=== PATIENT | male | born 1970 | race Two or more races ===

== ENCOUNTER 2023-05-27 16:51 | Inpatient (IN) | payer MEDICAID, OTHER ==
[~2023-05-27] VITALS: Ht 172.7 cm; Wt 83.5 kg
[2023-05-27] MEDS ORDERED: VANCOMYCIN PER PHARMACY 0 MG IV SCH (18:30)
[2023-05-27] MEDS ORDERED: PIPERACILLIN-TAZOB 3.375GM 100 ML IV ONE (18:30)
[2023-05-27 18:31] LABS: Basophils # (auto) 0 10 ^3/uL (0-0.2); Eosinophils # (auto) 0 10 ^3/uL (0-0.8); Hematocrit 45.7 % (41.0-53.0); Hemoglobin 14.5 g/dL (13.5-17.5); Lymphocytes # (auto) 0.4 10 ^3/uL (0.4-5.4); Lymphocytes % (auto) 3.2 % (10.0-50.0); Mean Corpuscular Hemoglobin 25.9 pg (28.0-32.0); Mean Corpuscular Hgb Conc. 31.8 g/dL (32.0-36.0); Mean Corpuscular Volume 81.3 fL (80.0-100.0); Monocytes # (auto) 0.2 10 ^3/uL (0-1.3); Monocytes % (auto) 1.9 % (0.0-12.0); Neutrophils % (auto) 94.9 % (37.0-80.0); Red Blood Cells 5.62 10^6/uL (4.5-5.90); Red Cell Distribution Width 17.8 % (11.8-14.3); White Blood Cell 11.6 10^3/uL (4.4-10.8)
[2023-05-27 18:32] LABS: Urine Bacteria NONE SEEN /hpf (None Seen); Urine Blood Negative /uL (Negative); Urine Clarity Clear (Clear); Urine Color Colorless (Yellow); Urine Mucus FEW (None Seen); Urine Protein, UAD Negative (Negative); Urine Specific Gravity 1.014 (1.001-1.035); Urine Urobilinogen Normal (Negative); Urine WBC <1 /hpf (0 - 3); Urine pH 6.5 (5.0-8.0)
[2023-05-27 18:33] LABS: Alanine Aminotransferase 16 U/L (7-40); Albumin 4.6 g/dL (3.2-4.8); Alkaline Phosphatase 131 U/L (46-116); Anion Gap 9 (5-15); Aspartate Aminotransferase 18 U/L (13-40); BUN/Creatinine Ratio 9.9 (10.0-20.0); Bilirubin, Total 0.5 mg/dL (0.2-1.0); Blood Urea Nitrogen 8 mg/dL (9-23); Calcium 9.1 mg/dL (8.7-10.4); Carbon Dioxide 26 mmol/L (20-30); Chloride 105 mmol/L (98-107); Glucose 113 mg/dL (74-106); Lactic Acid w/Reflex 2.2 mmol/L (0.4-2.0); Potassium 3.8 mmol/L (3.5-5.1); Sodium 140 mmol/L (136-145); Total Protein 7.3 g/dL (5.7-8.2)
[2023-05-27] MEDS ORDERED: LABETALOL HCL 5 MG/ML 4ML SYRINGE IV ONE (18:45)
[2023-05-27] MEDS: VANCOMYCIN 1GM/250ML 250 ML IV SCH (20:27)
[2023-05-27] MEDS ORDERED: MORPHINE SULFATE 4 MG/ML SYR/VIAL IV ONE (20:30)
[2023-05-27] MEDS ORDERED: ONDANSETRON HCL 4 MG/2 ML VIAL IV PRN (21:15)
[2023-05-27] MEDS ORDERED: ACETAMINOPHEN 325 MG TAB PO PRN (21:15)
[2023-05-27] MEDS ORDERED: TEMAZEPAM 15 MG CAP PO PRN (21:15)
[2023-05-27] MEDS ORDERED: hydrALAZINE HCL 20 MG/ML VL IV PRN (21:15)
[2023-05-28] MEDS: HYDROcodone-ACET 5/325MG TAB PO PRN ×5 (02:32→21:20)
[2023-05-28 05:04] LABS: Basophils # (auto) 0 10 ^3/uL (0-0.2); Basophils % (auto) 0.3 % (0.0-2.0); Eosinophils # (auto) 0 10 ^3/uL (0-0.8); Eosinophils % (auto) 0.5 % (0.0-7.0); Hematocrit 38.9 % (41.0-53.0); Hemoglobin 12.7 g/dL (13.5-17.5); Lymphocytes # (auto) 1.3 10 ^3/uL (0.4-5.4); Lymphocytes % (auto) 16.1 % (10.0-50.0); Mean Corpuscular Hemoglobin 26.1 pg (28.0-32.0); Mean Corpuscular Hgb Conc. 32.6 g/dL (32.0-36.0); Mean Corpuscular Volume 79.9 fL (80.0-100.0); Monocytes # (auto) 0.8 10 ^3/uL (0-1.3); Neutrophils # (auto) 6.2 10 ^3/uL (1.6-8.6); Neutrophils % (auto) 74.1 % (37.0-80.0); Red Blood Cells 4.87 10^6/uL (4.5-5.90); Red Cell Distribution Width 17.9 % (11.8-14.3); White Blood Cell 8.4 10^3/uL (4.4-10.8)
[2023-05-28 05:17] LABS: Alanine Aminotransferase 13 U/L (7-40); Albumin 3.8 g/dL (3.2-4.8); Alkaline Phosphatase 100 U/L (46-116); Anion Gap 8 (5-15); Aspartate Aminotransferase 12 U/L (13-40); BUN/Creatinine Ratio 12.5 (10.0-20.0); Blood Urea Nitrogen 8 mg/dL (9-23); Calcium 8.6 mg/dL (8.7-10.4); Carbon Dioxide 28 mmol/L (20-30); Chloride 104 mmol/L (98-107); Glucose 80 mg/dL (74-106); Potassium 3.4 mmol/L (3.5-5.1); Sodium 140 mmol/L (136-145)
[2023-05-28 05:18] LABS: Bilirubin, Total 0.6 mg/dL (0.2-1.0); Total Protein 5.9 g/dL (5.7-8.2)
[2023-05-28] MEDS: VANCOMYCIN 1GM/250ML 250 ML IV SCH ×2 (06:15→16:03)
[2023-05-28] MEDS: SILVER SULFADIAZINE 1 % TOPICAL CREAM 50GM TOP SCH (10:04)
[2023-05-28] MEDS: LISINOPRIL 10 MG TAB PO SCH (10:05)
[2023-05-28 16:47] VITALS: BP 104/71; PULSE 81; RESP 16; TEMP 98.7; O2SAT 97
[2023-05-28 22:00] VITALS: BP 111/64; PULSE 78; RESP 17; TEMP 97.8; O2SAT 98
[2023-05-29] MEDS: VANCOMYCIN 1GM/250ML 250 ML IV SCH ×3 (01:53→21:26)
[2023-05-29] MEDS: HYDROcodone-ACET 5/325MG TAB PO PRN ×5 (04:19→21:18)
[2023-05-29 05:00] VITALS: BP 126/69; PULSE 80; RESP 15; TEMP 98.1; O2SAT 100
[2023-05-29] MEDS: SILVER SULFADIAZINE 1 % TOPICAL CREAM 50GM TOP SCH (08:53)
[2023-05-29] MEDS: LISINOPRIL 10 MG TAB PO SCH (08:53)
[2023-05-29 09:00] VITALS: BP 118/79; PULSE 95; RESP 16; TEMP 98.9; O2SAT 98
[2023-05-29 13:00] VITALS: BP 132/76; PULSE 81; RESP 14; TEMP 98.8; O2SAT 95
[2023-05-29 17:00] VITALS: BP 124/72; PULSE 81; RESP 14; TEMP 98.8; O2SAT 98
[2023-05-29 20:00] VITALS: BP 93/56; PULSE 93; RESP 16; TEMP 97.7; O2SAT 97
[2023-05-29 22:00] VITALS: BP 93/56; PULSE 93; RESP 16; TEMP 81.6; O2SAT 97
[2023-05-29] MEDS ORDERED: PIPERACILLIN-TAZOB 3.375GM 100 ML IV SCH (22:00)
[2023-05-30] MEDS: PIPERACILLIN-TAZOB 3.375GM 100 ML IV SCH ×4 (00:10→21:40)
[2023-05-30] MEDS: HYDROcodone-ACET 5/325MG TAB PO PRN ×5 (01:34→20:26)
[2023-05-30 05:00] VITALS: BP 107/65; PULSE 89; RESP 18; TEMP 98.1; O2SAT 94
[2023-05-30] MEDS: VANCOMYCIN 1GM/250ML 250 ML IV SCH ×2 (08:43→18:17)
[2023-05-30 09:00] VITALS: BP 108/70; PULSE 83; RESP 20; TEMP 98.6; O2SAT 94
[2023-05-30] MEDS: LISINOPRIL 10 MG TAB PO SCH (10:30)
[2023-05-30] MEDS: SILVER SULFADIAZINE 1 % TOPICAL CREAM 50GM TOP SCH (10:34)
[2023-05-30 13:00] VITALS: BP 107/70; PULSE 68; RESP 20; TEMP 98.9; O2SAT 96
[2023-05-30 17:00] VITALS: BP 127/74; PULSE 82; RESP 20; TEMP 99.8; O2SAT 96
[2023-05-30 20:00] VITALS: BP 104/60; PULSE 98; RESP 19; TEMP 98.5; O2SAT 97
[2023-05-30 22:00] VITALS: BP 104/60; PULSE 98; RESP 19; TEMP 99.8; O2SAT 97
[2023-05-31] VITALS (8 sets, daily range): BP systolic 93–128; BP diastolic 54–94; PULSE 73–108; RESP 18–22; TEMP 98–101.9; O2SAT 94–97
[2023-05-31] MEDS: HYDROcodone-ACET 5/325MG TAB PO PRN ×5 (00:30→21:43)
[2023-05-31] MEDS: VANCOMYCIN 1GM/250ML 250 ML IV SCH (03:58)
[2023-05-31] MEDS: PIPERACILLIN-TAZOB 3.375GM 100 ML IV SCH (06:32)
[2023-05-31] MEDS: LISINOPRIL 10 MG TAB PO SCH (10:29)
[2023-05-31] MEDS: SILVER SULFADIAZINE 1 % TOPICAL CREAM 50GM TOP SCH (10:29)
[2023-05-31 10:30] LABS: Chloride 103 mmol/L (98-107); Potassium 4.1 mmol/L (3.5-5.1); Sodium 139 mmol/L (136-145)
[2023-05-31 10:31] LABS: Anion Gap 6 (5-15); Carbon Dioxide 30 mmol/L (20-30)
[2023-05-31 10:32] LABS: Calcium 8.3 mg/dL (8.5-10.1)
[2023-05-31 10:36] LABS: BUN/Creatinine Ratio 9.3 (10.0-20.0); Blood Urea Nitrogen 25 mg/dL (9-23); Glucose 112 mg/dL (74-106)
[2023-05-31] MEDS: CEFEPIME 1GM/ 50ML 50 ML IV SCH ×2 (14:35→21:48)
[2023-06-01] MEDS: HYDROcodone-ACET 5/325MG TAB PO PRN ×5 (02:18→20:55)
[2023-06-01 05:00] VITALS: BP 90/53; PULSE 89; RESP 19; TEMP 97.7; O2SAT 94
[2023-06-01 08:00] VITALS: PULSE 86; RESP 18; O2SAT 96
[2023-06-01 09:34] VITALS: BP 135/80; PULSE 82; RESP 17; TEMP 98.8; O2SAT 96
[2023-06-01] MEDS: LISINOPRIL 10 MG TAB PO SCH ×2 (09:47→09:55)
[2023-06-01] MEDS: CEFEPIME 1GM/ 50ML 50 ML IV SCH (09:47)
[2023-06-01 09:51] VITALS: BP 103/57; PULSE 86; RESP 18; TEMP 98; O2SAT 96
[2023-06-01] MEDS: SILVER SULFADIAZINE 1 % TOPICAL CREAM 50GM TOP SCH (12:01)
[2023-06-01] MEDS: diphenhdrAMINE HCL 25 MG CAP PO PRN ×2 (12:30→20:55)
[2023-06-01 20:00] VITALS: BP 92/56; PULSE 66; RESP 18; TEMP 97.9; O2SAT 99
[2023-06-01 22:00] VITALS: BP 92/56; PULSE 66; RESP 18; TEMP 97.9; O2SAT 99
[2023-06-01] MEDS ORDERED: VANCOMYCIN PER PHARMACY 0 MG IV SCH (22:00)
[2023-06-02] VITALS (7 sets, daily range): BP systolic 81–114; BP diastolic 45–70; PULSE 91–102; RESP 15–18; TEMP 98.4–99; O2SAT 95–97
[2023-06-02] MEDS: HYDROcodone-ACET 5/325MG TAB PO PRN ×4 (05:38→20:33)
[2023-06-02] MEDS: diphenhdrAMINE HCL 25 MG CAP PO PRN ×3 (05:39→20:34)
[2023-06-02] MEDS: LISINOPRIL 10 MG TAB PO SCH (09:35)
[2023-06-02] MEDS: SILVER SULFADIAZINE 1 % TOPICAL CREAM 50GM TOP SCH (10:00)
[2023-06-02] MEDS: HYDROmorphone HCL 2 MG/ML VL/or syr IV PRN (13:53)
[2023-06-02 19:01] LABS: Chloride 101 mmol/L (98-107); Potassium 4.4 mmol/L (3.5-5.1); Sodium 135 mmol/L (136-145)
[2023-06-02 19:02] LABS: Anion Gap 9 (5-15); Calcium 8.4 mg/dL (8.7-10.4); Carbon Dioxide 25 mmol/L (20-30)
[2023-06-02 19:07] LABS: BUN/Creatinine Ratio 8.6 (10.0-20.0); Blood Urea Nitrogen 36 mg/dL (9-23); Glucose 157 mg/dL (74-106)
[2023-06-02] MEDS: LINEZOLID 600MG/300ML 300 ML IV SCH (21:54)
[2023-06-03] VITALS (7 sets, daily range): BP systolic 94–117; BP diastolic 53–74; PULSE 80–97; RESP 14–18; TEMP 98.1–99.8; O2SAT 96–98
[2023-06-03] MEDS: HYDROcodone-ACET 5/325MG TAB PO PRN ×5 (00:37→21:38)
[2023-06-03] MEDS: diphenhdrAMINE HCL 25 MG CAP PO PRN ×4 (01:15→21:27)
[2023-06-03 05:12] LABS: Urine Bacteria NONE SEEN /hpf (None Seen); Urine Blood Negative /uL (Negative); Urine Clarity Clear (Clear); Urine Protein, UAD Negative (Negative); Urine Specific Gravity 1.006 (1.001-1.035); Urine Urobilinogen Normal (Negative); Urine WBC <1 /hpf (0 - 3); Urine pH 5.5 (5.0-8.0)
[2023-06-03 05:15] LABS: Urine Color Straw (Yellow)
[2023-06-03 05:17] LABS: Protein, Urine 19.4 mg/dL (0.0-11.9)
[2023-06-03 05:19] LABS: Creatinine, Urine 44.73 mg/dL (30.0-125.0)
[2023-06-03 07:05] LABS: Chloride 106 mmol/L (98-107); Potassium 3.7 mmol/L (3.5-5.1); Sodium 137 mmol/L (136-145)
[2023-06-03 07:06] LABS: Anion Gap 8 (5-15); Carbon Dioxide 23 mmol/L (20-30)
[2023-06-03 07:11] LABS: BUN/Creatinine Ratio 9.5 (10.0-20.0); Blood Urea Nitrogen 32 mg/dL (9-23); Glucose 87 mg/dL (74-106)
[2023-06-03] MEDS ORDERED: FUROSEMIDE 100 MG/10ML VIAL IV ONE (07:15)
[2023-06-03] MEDS: LINEZOLID 600MG/300ML 300 ML IV SCH ×2 (08:04→21:28)
[2023-06-03] MEDS: DAKINS HALF STR 0.25% (NaHypochlorite) 473 ML TOPICAL SOL TOP SCH (08:04)
[2023-06-03] MEDS: SILVER SULFADIAZINE 1 % TOPICAL CREAM 50GM TOP SCH (08:04)
[2023-06-03] MEDS: HYDROmorphone HCL 2 MG/ML VL/or syr IV PRN (16:12)
[2023-06-04] MEDS: diphenhdrAMINE HCL 25 MG CAP PO PRN ×4 (01:10→18:18)
[2023-06-04] MEDS: HYDROcodone-ACET 5/325MG TAB PO PRN ×5 (01:20→20:29)
[2023-06-04 05:00] VITALS: BP 92/62; PULSE 86; RESP 18; TEMP 98.3; O2SAT 95
[2023-06-04 07:40] LABS: Chloride 103 mmol/L (98-107); Potassium 4.1 mmol/L (3.5-5.1); Sodium 136 mmol/L (136-145)
[2023-06-04 07:41] LABS: Anion Gap 10 (5-15); Carbon Dioxide 23 mmol/L (20-30)
[2023-06-04 07:42] LABS: Calcium 8.2 mg/dL (8.5-10.1)
[2023-06-04 07:46] LABS: BUN/Creatinine Ratio 9.5 (10.0-20.0); Blood Urea Nitrogen 33 mg/dL (9-23); Glucose 73 mg/dL (74-106)
[2023-06-04 09:00] VITALS: BP 101/60; PULSE 74; RESP 16; TEMP 98.1; O2SAT 95
[2023-06-04] MEDS: SILVER SULFADIAZINE 1 % TOPICAL CREAM 50GM TOP SCH (10:00)
[2023-06-04] MEDS: DAKINS HALF STR 0.25% (NaHypochlorite) 473 ML TOPICAL SOL TOP SCH (10:00)
[2023-06-04] MEDS: LINEZOLID 600MG/300ML 300 ML IV SCH ×2 (10:09→21:58)
[2023-06-04 13:00] VITALS: BP 103/57; PULSE 88; RESP 18; TEMP 98.2; O2SAT 97
[2023-06-04] MEDS ORDERED: levoFLOXacin 500MG 100 ML IV ONE (14:45)
[2023-06-04] MEDS ORDERED: CEFEPIME 2GM/50ML NS 50 ML IV SCH (15:00)
[2023-06-04] MEDS: HYDROmorphone HCL 2 MG/ML VL/or syr IV PRN (16:39)
[2023-06-04 17:00] VITALS: BP 121/47; PULSE 86; RESP 22; TEMP 98.6; O2SAT 97
[2023-06-04 18:49] LABS: INR 1.09 (0.9-1.15); Partial Thromboplastin Time 35.7 SEC (24.5-34.5); Prothrombin Time 11.4 sec (9.3-11.8)
[2023-06-04 20:00] VITALS: PULSE 94; RESP 17; O2SAT 94
[2023-06-04 22:00] VITALS: BP 98/56; PULSE 94; RESP 17; TEMP 98.7; O2SAT 96
[2023-06-05] MEDS: HYDROcodone-ACET 5/325MG TAB PO PRN (00:47)
[2023-06-05] MEDS: diphenhdrAMINE HCL 25 MG CAP PO PRN ×2 (00:47→21:10)
[2023-06-05 05:00] VITALS: BP 103/56; PULSE 79; RESP 18; TEMP 97.9; O2SAT 98
[2023-06-05 07:00] LABS: Anion Gap 9 (5-15); Carbon Dioxide 22 mmol/L (20-30); Chloride 102 mmol/L (98-107); Potassium 4.1 mmol/L (3.5-5.1); Sodium 133 mmol/L (136-145)
[2023-06-05 07:01] LABS: Calcium 8.4 mg/dL (8.7-10.4)
[2023-06-05 07:06] LABS: BUN/Creatinine Ratio 7.2 (10.0-20.0); Blood Urea Nitrogen 23 mg/dL (9-23); Glucose 81 mg/dL (74-106)
[2023-06-05 07:07] LABS: Basophils # (auto) 0 10 ^3/uL (0-0.2); Eosinophils # (auto) 0.8 10 ^3/uL (0-0.8); Hemoglobin 12.8 g/dL (13.5-17.5); Lymphocytes # (auto) 0.7 10 ^3/uL (0.4-5.4); Monocytes # (auto) 0.6 10 ^3/uL (0-1.3); Red Cell Distribution Width 16.9 % (11.8-14.3)
[2023-06-05 07:13] LABS: Basophils % (auto) 0.1 % (0.0-2.0); Eosinophils % (auto) 9.4 % (0.0-7.0); Hematocrit 38.9 % (41.0-53.0); Lymphocytes % (auto) 8.7 % (10.0-50.0); Mean Corpuscular Hemoglobin 26.6 pg (28.0-32.0); Mean Corpuscular Volume 80.8 fL (80.0-100.0); Monocytes % (auto) 7.4 % (0.0-12.0); Neutrophils # (auto) 6.1 10 ^3/uL (1.6-8.6); Neutrophils % (auto) 74.4 % (37.0-80.0); Red Blood Cells 4.82 10^6/uL (4.5-5.90); White Blood Cell 8.2 10^3/uL (4.4-10.8)
[2023-06-05 09:00] VITALS: BP 97/61; PULSE 102; RESP 18; O2SAT 100
[2023-06-05] MEDS: LINEZOLID 600MG/300ML 300 ML IV SCH ×2 (10:03→21:23)
[2023-06-05] MEDS: HYDROmorphone HCL 2 MG/ML VL/or syr IV PRN ×2 (10:03→21:16)
[2023-06-05] MEDS: SILVER SULFADIAZINE 1 % TOPICAL CREAM 50GM TOP SCH (10:03)
[2023-06-05] MEDS: levoFLOXacin 250MG 50 ML IV SCH (10:03)
[2023-06-05] MEDS: DAKINS HALF STR 0.25% (NaHypochlorite) 473 ML TOPICAL SOL TOP SCH (10:03)
[2023-06-05] MEDS: SODIUM CHLORIDE 0.9% 1,000 ML IV SCH (11:45)
[2023-06-05] MEDS ORDERED: BUPIVACAINE 0.5% P/F INJ 10 ML VIAL ONE (19:23)
[2023-06-05] MEDS ORDERED: LIDOCAINE W/ EPINEPHRINE 2% INJ 20ML VIAL ONE (19:23)
[2023-06-05] MEDS ORDERED: fentaNYL CITRATE 100 MCG/2 ML VL ONE (19:27)
[2023-06-05] MEDS ORDERED: MIDAZOLAM HCL 2MG/2ML 2ml VIAL (1mg/ml) ONE (19:27)
[2023-06-05] MEDS ORDERED: PROPOFOL 10 MG/ML 20 ML IV ONE (19:44)
[2023-06-05] MEDS ORDERED: DexAMETHasone SOD PHOS 10MG/1ML VIAL INJ ONE (19:44)
[2023-06-05] MEDS ORDERED: MEPERIDINE HCL (25 MG/ML) 1ML VIAL ONE (19:47)
[2023-06-05 20:12] VITALS: PULSE 93; RESP 12; O2SAT 100
[2023-06-05 20:30] VITALS: PULSE 95; RESP 22; O2SAT 100
[2023-06-05] MEDS ORDERED: ONDANSETRON HCL 4 MG/2 ML VIAL IV PRN (20:30)
[2023-06-05] MEDS ORDERED: MORPHINE SULFATE 4 MG/ML SYR/VIAL IV PRN (20:30)
[2023-06-05] MEDS ORDERED: MIDAZOLAM HCL 2MG/2ML 2ml VIAL (1mg/ml) IV PRN (20:30)
[2023-06-05] MEDS ORDERED: ePHEDrine SULFATE 50 MG/ML AMP IV PRN (20:30)
[2023-06-05] MEDS ORDERED: LABETALOL HCL 5 MG/ML 4ML SYRINGE IV PRN (20:30)
[2023-06-05 21:00] VITALS: BP 133/82; PULSE 77; RESP 18; TEMP 99.2; O2SAT 93
[2023-06-05 22:00] VITALS: BP 133/82; PULSE 77; RESP 18; TEMP 98.2; O2SAT 93
[2023-06-06] MEDS: HYDROmorphone HCL 2 MG/ML VL/or syr IV PRN ×5 (01:43→20:53)
[2023-06-06] MEDS: diphenhdrAMINE HCL 25 MG CAP PO PRN ×3 (03:26→21:48)
[2023-06-06] MEDS: SODIUM CHLORIDE 0.9% 1,000 ML IV SCH (04:25)
[2023-06-06 05:00] VITALS: BP 106/69; PULSE 80; RESP 16; TEMP 98.4; O2SAT 96
[2023-06-06 06:15] LABS: Basophils # (auto) 0 10 ^3/uL (0-0.2); Eosinophils # (auto) 0 10 ^3/uL (0-0.8); Eosinophils % (auto) 0.2 % (0.0-7.0)
[2023-06-06 06:17] LABS: Basophils % (auto) 0.2 % (0.0-2.0); Hematocrit 35.9 % (41.0-53.0); Hemoglobin 11.8 g/dL (13.5-17.5); Lymphocytes # (auto) 0.7 10 ^3/uL (0.4-5.4); Lymphocytes % (auto) 8.1 % (10.0-50.0); Mean Corpuscular Hemoglobin 26.4 pg (28.0-32.0); Mean Corpuscular Hgb Conc. 32.9 g/dL (32.0-36.0); Mean Corpuscular Volume 80.3 fL (80.0-100.0); Monocytes # (auto) 0.2 10 ^3/uL (0-1.3); Monocytes % (auto) 2.3 % (0.0-12.0); Neutrophils # (auto) 7.6 10 ^3/uL (1.6-8.6); Neutrophils % (auto) 89.2 % (37.0-80.0); Red Blood Cells 4.47 10^6/uL (4.5-5.90); Red Cell Distribution Width 16.7 % (11.8-14.3); White Blood Cell 8.5 10^3/uL (4.4-10.8)
[2023-06-06 06:21] LABS: Chloride 107 mmol/L (98-107); Potassium 4.4 mmol/L (3.5-5.1); Sodium 136 mmol/L (136-145)
[2023-06-06 06:22] LABS: Anion Gap 8 (5-15); Carbon Dioxide 21 mmol/L (20-30)
[2023-06-06 06:27] LABS: BUN/Creatinine Ratio 8.5 (10.0-20.0); Blood Urea Nitrogen 25 mg/dL (9-23); Glucose 152 mg/dL (74-106)
[2023-06-06 06:28] LABS: Magnesium 1.8 mg/dL (1.6-2.6)
[2023-06-06] MEDS: levoFLOXacin 250MG 50 ML IV SCH (08:51)
[2023-06-06] MEDS: HYDROcodone-ACET 5/325MG TAB PO PRN ×2 (08:51→22:14)
[2023-06-06 09:00] VITALS: BP 103/36; PULSE 73; RESP 15; TEMP 98.1; O2SAT 97
[2023-06-06 09:13] VITALS: BP 114/75; PULSE 77; RESP 19; TEMP 97.5; O2SAT 98
[2023-06-06] MEDS: DAKINS HALF STR 0.25% (NaHypochlorite) 473 ML TOPICAL SOL TOP SCH (10:00)
[2023-06-06] MEDS: SILVER SULFADIAZINE 1 % TOPICAL CREAM 50GM TOP SCH (10:00)
[2023-06-06] MEDS: LINEZOLID 600MG/300ML 300 ML IV SCH ×2 (10:32→21:48)
[2023-06-06 13:00] VITALS: BP 115/79; PULSE 90; RESP 20; TEMP 97.8; O2SAT 93
[2023-06-06] MEDS: SOD CHL 0.45% 1,000 ML IV SCH (15:49)
[2023-06-06 17:01] VITALS: BP 120/77; PULSE 85; RESP 20; TEMP 98; O2SAT 98
[2023-06-06 22:00] VITALS: BP 111/73; PULSE 92; RESP 16; TEMP 98.6; O2SAT 99
[2023-06-07] MEDS: HYDROmorphone HCL 2 MG/ML VL/or syr IV PRN ×3 (03:00→13:24)
[2023-06-07] MEDS: HYDROcodone-ACET 5/325MG TAB PO PRN ×3 (04:22→16:38)
[2023-06-07 05:00] VITALS: BP 114/76; PULSE 75; RESP 16; TEMP 98.6; O2SAT 96
[2023-06-07 06:32] LABS: Basophils # (auto) 0 10 ^3/uL (0-0.2); Eosinophils # (auto) 0.2 10 ^3/uL (0-0.8); Lymphocytes # (auto) 1.5 10 ^3/uL (0.4-5.4); Monocytes # (auto) 0.7 10 ^3/uL (0-1.3); Neutrophils # (auto) 9.6 10 ^3/uL (1.6-8.6); White Blood Cell 12.1 10^3/uL (4.4-10.8)
[2023-06-07 06:34] LABS: Basophils % (auto) 0.2 % (0.0-2.0); Hemoglobin 10.9 g/dL (13.5-17.5); Lymphocytes % (auto) 12.4 % (10.0-50.0); Mean Corpuscular Hemoglobin 26.4 pg (28.0-32.0); Mean Corpuscular Hgb Conc. 32.9 g/dL (32.0-36.0); Mean Corpuscular Volume 80.2 fL (80.0-100.0); Monocytes % (auto) 6.2 % (0.0-12.0); Neutrophils % (auto) 79.2 % (37.0-80.0); Red Blood Cells 4.11 10^6/uL (4.5-5.90); Red Cell Distribution Width 17.1 % (11.8-14.3)
[2023-06-07 06:49] LABS: Calcium 8.1 mg/dL (8.7-10.4); Chloride 109 mmol/L (98-107); Sodium 138 mmol/L (136-145)
[2023-06-07 06:50] LABS: Anion Gap 8 (5-15); Carbon Dioxide 21 mmol/L (20-30)
[2023-06-07 06:55] LABS: BUN/Creatinine Ratio 11.9 (10.0-20.0); Blood Urea Nitrogen 28 mg/dL (9-23); Glucose 120 mg/dL (74-106)
[2023-06-07] MEDS: SOD CHL 0.45% 1,000 ML IV SCH ×2 (07:00→09:00)
[2023-06-07 08:00] VITALS: BP 132/78; PULSE 78; RESP 18; TEMP 98.6; O2SAT 96
[2023-06-07] MEDS: levoFLOXacin 250MG 50 ML IV SCH (08:58)
[2023-06-07 09:00] VITALS: BP 125/76; PULSE 78; RESP 19; TEMP 97.9; O2SAT 96
[2023-06-07] MEDS ORDERED: LEVO500T91 PO (09:49)
[2023-06-07] MEDS ORDERED: LINE1TAB10 PO (09:49)
[2023-06-07] MEDS: SILVER SULFADIAZINE 1 % TOPICAL CREAM 50GM TOP SCH (10:00)
[2023-06-07] MEDS: DAKINS HALF STR 0.25% (NaHypochlorite) 473 ML TOPICAL SOL TOP SCH (10:00)
[2023-06-07] MEDS: LINEZOLID 600MG/300ML 300 ML IV SCH (11:03)
[2023-06-07] MEDS ORDERED: METH2.5T PO (11:11)
[2023-06-07] MEDS ORDERED: FOLI-119 PO (11:11)
[2023-06-07] MEDS ORDERED: HYDR-4188 PO (11:11)
[2023-06-07] MEDS: diphenhdrAMINE HCL 25 MG CAP PO PRN (13:47)
[2023-06-07 16:12] VITALS: BP 117/74; PULSE 74; RESP 16; TEMP 97.9; O2SAT 96
== END 2023-06-07 16:55 | disposition home or self-care (01) | DRG 380 ==
LOC: ER 16:51 → OVERFLOW 21:08 → CENTRAL 05-28 15:55
PROVIDERS: ADMIT Nurse Practitioner; ATTEND Internal Medicine Geriatric Medicine
PROC: 0JBP0ZZ Excision of Left Lower Leg Subcutaneous Tissue and Fascia, Open Approach (ICD-10-PCS; principal; 2023-06-05 19:32)
DX: L97.821 Non-pressure chronic ulcer of other part of left lower leg limited to breakdown of skin (principal); N17.0 Acute kidney failure with tubular necrosis; I83.028 Varicose veins of left lower extremity with ulcer other part of lower leg; I87.2 Venous insufficiency (chronic) (peripheral); T36.8X5A Adverse effect of other systemic antibiotics, initial encounter; M06.9 Rheumatoid arthritis, unspecified; I16.0 Hypertensive urgency
CPT/HCPCS: 36415; 73590; 76775; 80048; 80053; 80202; 81001; 82565; 82570; 83605; 83735; 84156; 84300; 85025; 85610; 85730; 87040; 87077; 87186; 87205; 97110; 97116; 97163; 99291; G0378; J1100; J1956; J2250; J2405; J2543; J2704; J3490